=== PATIENT | female | born 1975 | race Caucasian/White ===

== ENCOUNTER → 2018-01-23 | Outpatient (CLI) | payer BC | LOC: MC.RAD 14:12 | DX: Z12.31 Encounter for screening mammogram for malignant neoplasm of breast (principal) ==

== ENCOUNTER → 2019-02-26 | Outpatient (CLI) | payer BC | LOC: MC.RAD 09:06 | DX: Z12.31 Encounter for screening mammogram for malignant neoplasm of breast (principal) ==

== ENCOUNTER → 2021-02-15 | Outpatient (CLI) | payer BC | LOC: MC.RAD 08:19 | DX: Z12.31 Encounter for screening mammogram for malignant neoplasm of breast (principal) ==

== ENCOUNTER → 2022-03-26 | Outpatient (CLI) | payer BC | LOC: MC.RAD 08:30 | DX: Z12.31 Encounter for screening mammogram for malignant neoplasm of breast (principal) ==

== ENCOUNTER → 2022-04-26 | Outpatient (CLI) | payer BC | LOC: MC.RAD 11:36 | DX: Z12.31 Encounter for screening mammogram for malignant neoplasm of breast (principal) ==

== ENCOUNTER → 2024-05-08 | Outpatient (CLI) | payer BC ==
[~2024-05-08] MED LIST: PRINIVIL10 MG PO; SETLAKIN 0.151 EACH PO
== END ==
LOC: MC.RAD 07:23
DX: Z12.31 Encounter for screening mammogram for malignant neoplasm of breast (principal)